=== PATIENT | female | born 1970 | race Caucasian/White ===

== ENCOUNTER → 2016-08-12 | Outpatient (CLI) | payer OTHER ==
[~2016-08-12] MED LIST: CALC0.5C PO; CALC0.5C2 PO; CALC200T3 PO; CALC500T PO; CYCL-259 PO; DIAZ5TAB PO; DILT30TA33 PO; DOCU-30 PO; FAMO20TA7 PO; HYDR-882 PO; LEVO137T2 PO; LEVO150T PO; LIOT5TAB3 PO; OMEP40CA6 PO; OXYC10TA6 PO; OXYC15TA PO; PHEN-494 PO; POLY17PO5 PO; PREG25CA PO
== END | disposition home or self-care (01) ==
LOC: RAD 16:04
PROVIDERS: ATTEND Neurological Surgery
DX: M46.1 Sacroiliitis, not elsewhere classified (principal); M41.86 Other forms of scoliosis, lumbar region; M41.84 Other forms of scoliosis, thoracic region; M41.82 Other forms of scoliosis, cervical region; M51.34 Other intervertebral disc degeneration, thoracic region; Z98.1 Arthrodesis status; Z98.890 Other specified postprocedural states
CPT/HCPCS: 72082; 72128; 72131

== ENCOUNTER → 2016-09-16 | Outpatient (CLI) | payer OTHER ==
[~2016-09-16] MED LIST changes: +ASCO-96 PO; +CHOL40002 PO; +ESTR1PAT25 TD; +LEVO137T3 PO; +MULT-82 PO; +OXYC20TA2 PO; +UBID100C11 PO
== END | disposition home or self-care (01) ==
LOC: STAR 12:45
PROVIDERS: ATTEND Internal Medicine
DX: Z02.9 Encounter for administrative examinations, unspecified (principal)

== ENCOUNTER 2016-09-30 10:40 | Day surgery (SDC) | payer OTHER ==
[~2016-09-30] VITALS: Ht 157.5 cm; Wt 88.2 kg
[2016-09-30] MEDS ORDERED: ONDANSETRON 2MG/ML, 2ML ONE ×2 (11:12→13:11)
[2016-09-30] MEDS ORDERED: KETOROLAC 30 MG/1 ML ONE (11:12)
[2016-09-30] MEDS ORDERED: OXYcodone IR 5MG TABLET ONE (11:24)
[2016-09-30] MEDS ORDERED: OXYcodone 5 MG/5 ML ORAL.SOL UDC ONE ×2 (11:59→15:20)
[2016-09-30] MEDS ORDERED: MIDAZOLAM 1 MG/ML, 2ML ONE (12:49)
[2016-09-30] MEDS ORDERED: FENTANYL PF 250 MCG/5ML ONE (12:49)
[2016-09-30] MEDS ORDERED: CEFAZOLIN 1,000 MG ONE (13:11)
[2016-09-30] MEDS ORDERED: PROPOFOL 10 MG/ML, 20ML ONE (13:11)
[2016-09-30] MEDS ORDERED: DEXAMETHASONE 4 MG/ML, 1ML ONE (13:11)
[2016-09-30] MEDS ORDERED: SUCCINYLCHOLINE 20 MG/ML, 10ML ONE (13:11)
[2016-09-30] MEDS ORDERED: DIAZEPAM 5 MG/ML, 2ML ONE (14:06)
[2016-09-30] MEDS ORDERED: ACETAMINOPHEN 650 MG/20.3 ML UDC ONE (15:20)
[2016-10-02] MEDS ORDERED: LACTATED RINGERS 1,000 ML IV SCH ×2 (10:24→11:00)
[2016-10-02] MEDS ORDERED: FENTANYL PF 100 MCG/2ML IV ONE (11:00)
[2016-10-02] MEDS ORDERED: ONDANSETRON 2MG/ML, 2ML IVPush ONE (11:00)
[2016-10-02] MEDS ORDERED: ACETAMINOPHEN 650 MG/20.3 ML UDC PO ONE (11:00)
[2016-10-02] MEDS ORDERED: OXYcodone 5 MG/5 ML ORAL.SOL UDC PO ONE (11:00)
[2016-10-02] MEDS ORDERED: KETOROLAC 30 MG/1 ML IVPush ONE (11:00)
[2016-10-02] MEDS ORDERED: OXYcodone ORAL.CONC 20 MG/ML PO ONE (11:00)
== END 2016-09-30 16:15 | disposition home or self-care (01) ==
LOC: OR 10:40
PROVIDERS: ATTEND Internal Medicine
DX: J38.01 Paralysis of vocal cords and larynx, unilateral (principal); Z98.1 Arthrodesis status; G89.29 Other chronic pain; E03.9 Hypothyroidism, unspecified; Z88.6 Allergy status to analgesic agent
CPT/HCPCS: 43246; B4087; J0330; J0690; J1100; J1885; J2250; J2405; J2704; J3010; J3360

== ENCOUNTER 2016-10-01 15:26 | Emergency (ER) | payer OTHER ==
[~2016-10-01] VITALS: Ht 157.5 cm; Wt 90.0 kg
[2016-10-01] MEDS ORDERED: SODIUM CHLORIDE 0.9% 1,000 ML IV ONE (15:39)
[2016-10-01] MEDS ORDERED: ONDANSETRON 2MG/ML, 2ML ONE (15:53)
[2016-10-01] MEDS ORDERED: HYDROmorphone 2 MG/ML, 1ML ONE (15:53)
[2016-10-01] MEDS ORDERED: ONDANSETRON 2MG/ML, 2ML IVPush ONE (16:00)
[2016-10-01] MEDS ORDERED: SODIUM CHLORIDE FLUSH 10ML SYR IVF ONE (16:00)
[2016-10-01 16:11] LABS: ASPARTATE AMINO TRANSFERASE 26 U/L (15-37); BLOOD UREA NITROGEN 13 mg/dL (7-18)
[2016-10-01] MEDS: HYDROmorphone 1 MG/ML, 1ML IVPush PRN ×2 (16:59→17:44)
[2016-10-01] MEDS ORDERED: HYDROmorphone 1 MG/ML, 1ML ONE ×2 (17:43→19:34)
[2016-10-01] MEDS ORDERED: OMNIPAQUE 350 MG/ML, 100ML BOTTLE ONE (18:36)
[2016-10-01 19:43] VITALS: BP 127/79
[2016-10-01] MEDS ORDERED: HYDROmorphone 2 MG/ML, 1ML IVPush PRN (20:30)
[2016-10-01] MEDS ORDERED: HYDROmorphone 1 MG/ML, 1ML IVPush PRN (21:23)
== END 2016-10-01 20:11 | disposition home or self-care (01) ==
LOC: ED 20:06
DX: T85.848A Pain due to other internal prosthetic devices, implants and grafts, initial encounter (principal); J45.909 Unspecified asthma, uncomplicated; M54.2 Cervicalgia; E03.9 Hypothyroidism, unspecified; G89.29 Other chronic pain; Z90.49 Acquired absence of other specified parts of digestive tract
CPT/HCPCS: 36415; 74177; 80053; 83690; 85025; 96361; 96374; 96375; 96376; 99285; J1170; J2405; J7030; Q9967

== ENCOUNTER → 2017-01-03 | Outpatient (CLI) | payer OTHER ==
[~2017-01-03] MED LIST changes: +DOCU-131 PO; -DOCU-30 PO; +MULT-224 PO; -MULT-82 PO; -PHEN-494 PO; +PHEN-583 PO; -UBID100C11 PO; +UBID100C41 PO
== END | disposition home or self-care (01) ==
LOC: RAD 12:11
PROVIDERS: ATTEND Neurological Surgery
DX: M48.02 Spinal stenosis, cervical region (principal); M50.01 Cervical disc disorder with myelopathy, high cervical region; M54.6 Pain in thoracic spine; G89.29 Other chronic pain; Z98.1 Arthrodesis status
CPT/HCPCS: 72050; 72072

== ENCOUNTER → 2017-03-12 | Outpatient (CLI) | payer OTHER | END | disposition home or self-care (01) | LOC: CFH 15:57 | PROVIDERS: ATTEND Internal Medicine | DX: R10.11 Right upper quadrant pain (principal); Z90.49 Acquired absence of other specified parts of digestive tract | CPT/HCPCS: 74181 ==

== ENCOUNTER → 2017-05-08 | Outpatient (CLI) | payer OTHER ==
[~2017-05-08] MED LIST changes: -CALC0.5C PO; +CALC0.5C9 PO
== END ==
LOC: LAB 13:08
PROVIDERS: ATTEND Psychiatry & Neurology Neurology
DX: R53.1 Weakness (principal)
CPT/HCPCS: 83519

== ENCOUNTER → 2017-05-08 | Outpatient (CLI) | payer OTHER | LOC: STAR 13:04 | PROVIDERS: ATTEND Otolaryngology | DX: Z02.9 Encounter for administrative examinations, unspecified (principal) ==

== ENCOUNTER → 2017-05-08 | Outpatient (CLI) | payer OTHER | END | disposition home or self-care (01) | LOC: RAD 13:07 | PROVIDERS: ATTEND Neurological Surgery | DX: M47.812 Spondylosis without myelopathy or radiculopathy, cervical region (principal); M41.86 Other forms of scoliosis, lumbar region | CPT/HCPCS: 72050; 72110 ==

== ENCOUNTER 2017-05-13 05:33 | Day surgery (SDC) | payer OTHER ==
[~2017-05-13] VITALS: Ht 157.5 cm; Wt 86.4 kg
[2017-05-13 06:10] VITALS: BP 117/90
[2017-05-13] MEDS ORDERED: LACTATED RINGERS 1,000 ML IV SCH (06:10)
[2017-05-13] MEDS ORDERED: PROPOFOL 10 MG/ML, 20ML ONE (06:23)
[2017-05-13] MEDS ORDERED: ROCURONIUM 10 MG/ML,10ML ONE (06:23)
[2017-05-13] MEDS ORDERED: SUCCINYLCHOLINE 20 MG/ML, 10ML ONE (06:23)
[2017-05-13] MEDS ORDERED: MIDAZOLAM 1 MG/ML, 2ML ONE ×2 (06:23→07:20)
[2017-05-13] MEDS ORDERED: LIDOCAINE-MPF 2% ,5ML ONE (06:23)
[2017-05-13] MEDS ORDERED: FENTANYL PF 100 MCG/2ML ONE ×2 (06:23→07:39)
[2017-05-13] MEDS ORDERED: EPINEPHRINE TOPICAL SOLN 1 MG/ML, 30ML ONE (06:25)
[2017-05-13] MEDS ORDERED: KETAMINE 10 MG/ML, 20ML ONE (06:47)
[2017-05-13] MEDS ORDERED: DEXAMETHASONE 4 MG/ML, 1ML ONE (06:54)
[2017-05-13] MEDS ORDERED: CEFAZOLIN 1,000 MG ONE (06:54)
[2017-05-13] MEDS ORDERED: ONDANSETRON 2MG/ML, 2ML ONE ×2 (06:54→08:31)
[2017-05-13] MEDS ORDERED: OXYcodone 5 MG/5 ML ORAL.SOL UDC PO PRN (07:00)
[2017-05-13] MEDS ORDERED: PROMETHAZINE 25 MG/ML, 1ML IV PRN (07:00)
[2017-05-13] MEDS ORDERED: KETOROLAC 30 MG/1 ML IV PRN (07:00)
[2017-05-13] MEDS ORDERED: HYDROmorphone 1 MG/ML, 1ML IV PRN (07:00)
[2017-05-13] MEDS ORDERED: ACETAMINOPHEN 325 MG TABLET PO PRN (07:00)
[2017-05-13] MEDS ORDERED: MIDAZOLAM 1 MG/ML, 2ML IV PRN (07:00)
[2017-05-13] MEDS ORDERED: MEPERIDINE/PF 25MG/0.5ML IVPush PRN (07:00)
[2017-05-13] MEDS: FENTANYL PF 100 MCG/2ML IV PRN ×2 (07:41→07:54)
[2017-05-13] MEDS ORDERED: OXYcodone/APAP 10/325MG TABLET ONE (08:56)
[2017-05-13] MEDS ORDERED: OXYcodone/APAP 10/325MG TABLET PO PRN (09:00)
[2017-05-13] MEDS ORDERED: ONDANSETRON 2MG/ML, 2ML IVPush PRN (09:00)
== END 2017-05-13 12:45 | disposition home or self-care (01) ==
LOC: OUT 05:33
PROVIDERS: ATTEND Otolaryngology
DX: J38.01 Paralysis of vocal cords and larynx, unilateral (principal); J38.7 Other diseases of larynx; K21.9 Gastro-esophageal reflux disease without esophagitis; E03.9 Hypothyroidism, unspecified; F41.9 Anxiety disorder, unspecified; Z88.6 Allergy status to analgesic agent; Z88.8 Allergy status to other drugs, medicaments and biological substances
CPT/HCPCS: 31570; C1878; J0330; J0690; J1100; J2250; J2405; J2704; J3010; J3490; J7120

== ENCOUNTER → 2017-06-03 | Outpatient (CLI) | payer OTHER ==
[~2017-06-03] MED LIST changes: +GADOBUTROL 10 MMOL/10 ML PFS ONE
== END | disposition home or self-care (01) ==
LOC: RAD 09:07
PROVIDERS: ATTEND Psychiatry & Neurology Neurology
DX: M51.36 Other intervertebral disc degeneration, lumbar region (principal); M54.12 Radiculopathy, cervical region; G89.29 Other chronic pain; R27.0 Ataxia, unspecified; Z98.890 Other specified postprocedural states
CPT/HCPCS: 70553; 72141; 72148; A9585

== ENCOUNTER → 2017-09-23 | Outpatient (CLI) | payer OTHER ==
[~2017-09-23] MED LIST changes: -GADOBUTROL 10 MMOL/10 ML PFS ONE
== END | disposition home or self-care (01) ==
LOC: RAD 12:53
PROVIDERS: ATTEND Neurological Surgery
DX: M41.85 Other forms of scoliosis, thoracolumbar region (principal)
CPT/HCPCS: 72082

== ENCOUNTER 2018-05-26 08:38 | Outpatient (CLI) | payer OTHER ==
[~2018-05-26 08:38] MED LIST changes: +HYDR-3653 PO; -HYDR-882 PO; -MULT-224 PO; +MULT-642 PO
[2018-05-26] MEDS ORDERED: OMNIPAQUE 350 MG/ML, 100ML BOTTLE ONE (13:06)
== END 2018-05-26 23:59 | disposition home or self-care (01) ==
LOC: CFH 08:38
PROVIDERS: ATTEND Nurse Practitioner
DX: R10.11 Right upper quadrant pain (principal); Z90.49 Acquired absence of other specified parts of digestive tract
CPT/HCPCS: 74177; Q9967

== ENCOUNTER → 2018-10-06 | Outpatient (CLI) | payer OTHER ==
[~2018-10-06] MED LIST changes: +DOCU-180 PO; +ERGO500017 PO; +ESTR1PAT4 TD
[2018-10-06 14:07] LABS: MICROSCOPIC NOT IND
[2018-10-06 14:13] LABS: CULTURE INDICATED? NO
[2018-10-06 14:14] LABS: BASOPHILS # (AUTO) 0.09 x10^3/uL (0-0.1); BASOPHILS % (AUTO) 1 % (0-1); EOSINOPHILS # (AUTO) 0.43 x10^3/uL (0-0.4); EOSINOPHILS % (AUTO) 4 % (1-7); LYMPHOCYTES # (AUTO) 2.79 x10^3/uL (1-3.4); LYMPHOCYTES % (AUTO) 27 % (22-44); MD NO; MEAN CORPUSCULAR HEMOGLOBIN 28.2 pg (27.0-34.8); MEAN CORPUSCULAR HGB CONC 32.4 g/dL (32.4-35.8); MEAN PLATELET VOLUME 10.2 fL (7.4-10.4); MONOCYTES # (AUTO) 0.84 x10^3/uL (0.2-0.8); MONOCYTES % (AUTO) 8 % (2-9); NEUTROPHILS # (AUTO) 6.35 x10^3/uL (1.8-6.8); NEUTROPHILS % (AUTO) 60 % (42-75); PLATELET COUNT 269 x10^3/uL (130-400); RED BLOOD COUNT 4.91 x10^6/uL (3.82-5.3); RED CELL DISTRIBUTION WIDTH 13.7 % (9.6-15.2)
[2018-10-06 14:19] LABS: INTERNATIONAL NORMALIZED RATIO 0.95 (0.93-1.1)
[2018-10-06 14:21] LABS: ANION GAP 7 mmol/L (5-15); CALCIUM 8.5 mg/dL (8.5-10.1); CHLORIDE 105 mmol/L (98-107); CREATININE 0.64 mg/dL (0.55-1.02)
== END | disposition home or self-care (01) ==
LOC: STAR 12:34
PROVIDERS: ATTEND Neurological Surgery
DX: Z01.818 Encounter for other preprocedural examination (principal); M47.892 Other spondylosis, cervical region; R94.31 Abnormal electrocardiogram [ECG] [EKG]
CPT/HCPCS: 36415; 71046; 80048; 81003; 85025; 85610; 85730; 93005

== ENCOUNTER 2018-10-21 05:39 | Inpatient (IN) | payer OTHER ==
[~2018-10-21] VITALS: Ht 157.5 cm; Wt 108.7 kg
[2018-10-21] MEDS ORDERED: LACTATED RINGERS 1,000 ML IV SCH (06:15)
[2018-10-21 06:20] VITALS: BP 132/90
[2018-10-21] MEDS ORDERED: FENTANYL PF 250 MCG/5ML ONE (06:51)
[2018-10-21] MEDS ORDERED: MIDAZOLAM 1 MG/ML, 2ML ONE (06:51)
[2018-10-21] MEDS ORDERED: PROPOFOL 50 ML ONE ×3 (06:52→09:18)
[2018-10-21] MEDS ORDERED: LIDOCAINE-MPF 2% ,5ML ONE (06:56)
[2018-10-21] MEDS ORDERED: BUPIVACAINE/EPI 0.5% 1:200K ONE (07:05)
[2018-10-21] MEDS ORDERED: THROMBIN 5,000 UNIT VIAL TP ONE (07:06)
[2018-10-21] MEDS ORDERED: BACITRACIN 50,000 UNIT ONE (07:06)
[2018-10-21] MEDS ORDERED: GABAPENTIN 300 MG CAPSULE PO ONE (07:30)
[2018-10-21] MEDS ORDERED: hydrALAzine 20 MG/ML, 1ML IV PRN (07:30)
[2018-10-21] MEDS ORDERED: MEPERIDINE/PF 25MG/0.5ML IVPush PRN (07:30)
[2018-10-21] MEDS ORDERED: ALBUTEROL SULFATE 2.5 MG/3 ML NPPB PRN (07:30)
[2018-10-21] MEDS ORDERED: SCOPOLAMINE PATCH, 1.5MG PATCH.TD72 TD ONE (07:30)
[2018-10-21] MEDS ORDERED: OXYcodone 5 MG/5 ML ORAL.SOL UDC PO PRN (07:30)
[2018-10-21] MEDS ORDERED: ONDANSETRON 2MG/ML, 2ML IV PRN ×2 (07:30→13:00)
[2018-10-21] MEDS ORDERED: LORazepam 2 MG/ML, 1ML IVPush PRN (07:30)
[2018-10-21] MEDS ORDERED: METOCLOPRAMIDE 5 MG/ML, 2ML IV PRN (07:30)
[2018-10-21] MEDS ORDERED: FENTANYL PF 100 MCG/2ML IV PRN (07:30)
[2018-10-21] MEDS ORDERED: ACETAMINOPHEN 500 MG TABLET PO ONE (07:30)
[2018-10-21] MEDS ORDERED: KETAMINE 10 MG/ML, 20ML ONE (07:40)
[2018-10-21] MEDS ORDERED: DEXAMETHASONE 4 MG/ML, 1ML ONE (07:55)
[2018-10-21] MEDS ORDERED: ONDANSETRON 2MG/ML, 2ML ONE ×2 (09:02→10:34)
[2018-10-21] MEDS ORDERED: ROCURONIUM 10MG/ML,5ML ONE (09:02)
[2018-10-21] MEDS ORDERED: SUCCINYLCHOLINE 20 MG/ML, 10ML ONE (09:02)
[2018-10-21] MEDS ORDERED: CEFAZOLIN 1,000 MG ONE ×2 (09:03)
[2018-10-21] MEDS ORDERED: VANCOMYCIN 1,000 MG ONE (09:33)
[2018-10-21] MEDS ORDERED: MEPERIDINE/PF 100 MG/ML ONE (09:46)
[2018-10-21] MEDS ORDERED: FENTANYL PF 100 MCG/2ML ONE (10:34)
[2018-10-21] MEDS ORDERED: HYDROmorphone 2 MG/ML, 1ML ONE ×2 (10:34→10:46)
[2018-10-21] MEDS ORDERED: OXYcodone 5 MG/5 ML ORAL.SOL UDC ONE (10:35)
[2018-10-21] MEDS: HYDROmorphone 2 MG/ML, 1ML IVPush PRN ×4 (10:46→11:40)
[2018-10-21] MEDS ORDERED: METHOCARBAMOL 1,000 MG in DEXTROSE 5% 100 ML IV ONE (11:00)
[2018-10-21] MEDS ORDERED: hydrALAzine 20 MG/ML, 1ML ONE (11:08)
[2018-10-21 12:15] VITALS: BP 108/71
[2018-10-21] MEDS ORDERED: HYDROcodone/APAP 10/325 MG TABLET PO PRN (13:00)
[2018-10-21] MEDS ORDERED: DIPHENHYDRAMINE 25 MG CAPSULE PO PRN (13:00)
[2018-10-21] MEDS ORDERED: TIZANIDINE 2MG TABLET PO PRN (13:00)
[2018-10-21] MEDS ORDERED: MEPERIDINE/PF 25MG/0.5ML IM PRN (13:00)
[2018-10-21] MEDS ORDERED: MAGNESIUM HYDROXIDE 8%, 30ML UDC PO PRN (13:00)
[2018-10-21] MEDS ORDERED: DIPHENHYDRAMINE 50 MG/ML, 1ML IVPush PRN (13:00)
[2018-10-21] MEDS ORDERED: BISACODYL 10 MG SUPP PR PRN (13:00)
[2018-10-21] MEDS ORDERED: POLYETHYLENE GLYCOL 17 GM PACKET PO PRN (13:30)
[2018-10-21] MEDS: HYDROmorphone PCA 30 MG/30 ML IV PRN (13:37)
[2018-10-21] MEDS: NS + 20MEQ KCL 1,000 ML IV SCH ×2 (13:38→23:00)
[2018-10-21] MEDS: CEFAZOLIN PMX 1GM/50ML 50 ML IVPB SCH (16:29)
[2018-10-21 18:50] VITALS: BP 98/65
[2018-10-21] MEDS: DIAZEPAM 5 MG TABLET PO SCH (22:15)
[2018-10-21 23:55] VITALS: BP 104/66
[2018-10-22] MEDS: DIAZEPAM 5 MG TABLET PO SCH ×3 (00:03→21:43)
[2018-10-22] MEDS: CEFAZOLIN PMX 1GM/50ML 50 ML IVPB SCH (00:08)
[2018-10-22 01:42] VITALS: BP 110/67
[2018-10-22] MEDS: NS + 20MEQ KCL 1,000 ML IV SCH ×2 (01:48→19:22)
[2018-10-22] MEDS: OXYcodone IR 5MG TABLET PO PRN ×6 (01:48→20:35)
[2018-10-22 04:30] VITALS: BP 124/74
[2018-10-22 05:05] LABS: BASOPHILS # (AUTO) 0.08 x10^3/uL (0-0.1); BASOPHILS % (AUTO) 1 % (0-1); EOSINOPHILS # (AUTO) 0.01 x10^3/uL (0-0.4); EOSINOPHILS % (AUTO) 0 % (1-7); LYMPHOCYTES # (AUTO) 1.59 x10^3/uL (1-3.4); LYMPHOCYTES % (AUTO) 9 % (22-44); MD NO; MEAN CORPUSCULAR HGB CONC 31.8 g/dL (32.4-35.8); MEAN PLATELET VOLUME 9.5 fL (7.4-10.4); MONOCYTES # (AUTO) 0.96 x10^3/uL (0.2-0.8); MONOCYTES % (AUTO) 6 % (2-9); NEUTROPHILS % (AUTO) 85 % (42-75); PLATELET COUNT 251 x10^3/uL (130-400); RED BLOOD COUNT 4.23 x10^6/uL (3.82-5.3)
[2018-10-22 05:11] LABS: ANION GAP 4 mmol/L (5-15); CALCIUM 7.9 mg/dL (8.5-10.1); CHLORIDE 105 mmol/L (98-107); CREATININE 0.72 mg/dL (0.55-1.02)
[2018-10-22] MEDS: LEVOTHYROXINE 137 MCG TABLET PO SCH (05:14)
[2018-10-22 07:15] VITALS: BP 99/64
[2018-10-22] MEDS: SENNA/DOCUSATE TABLET PO SCH (09:21)
[2018-10-22] MEDS: DOCUSATE 100 MG CAPSULE PO SCH (09:22)
[2018-10-22] MEDS: VIVELLE DOT TP SCH (09:22)
[2018-10-22] MEDS: METHOCARBAMOL 750 MG TABLET PO SCH ×3 (10:18→21:43)
[2018-10-22 14:36] VITALS: BP 96/67
[2018-10-22] MEDS: HYDROmorphone PCA 30 MG/30 ML IV PRN (18:51)
[2018-10-22 20:18] VITALS: BP 131/82
[2018-10-23] MEDS: OXYcodone IR 5MG TABLET PO PRN ×3 (00:24→21:11)
[2018-10-23 03:32] VITALS: BP 117/79
[2018-10-23] MEDS: NS + 20MEQ KCL 1,000 ML IV SCH ×2 (05:18→15:00)
[2018-10-23 05:55] LABS: BASOPHILS # (AUTO) 0.08 x10^3/uL (0-0.1); BASOPHILS % (AUTO) 1 % (0-1); EOSINOPHILS # (AUTO) 0.57 x10^3/uL (0-0.4); EOSINOPHILS % (AUTO) 4 % (1-7); LYMPHOCYTES # (AUTO) 3.46 x10^3/uL (1-3.4); LYMPHOCYTES % (AUTO) 26 % (22-44); MD NO; MEAN CORPUSCULAR HEMOGLOBIN 28.3 pg (27.0-34.8); MEAN CORPUSCULAR HGB CONC 32.2 g/dL (32.4-35.8); MEAN PLATELET VOLUME 9.2 fL (7.4-10.4); MONOCYTES # (AUTO) 1.22 x10^3/uL (0.2-0.8); MONOCYTES % (AUTO) 9 % (2-9); NEUTROPHILS # (AUTO) 8.22 x10^3/uL (1.8-6.8); NEUTROPHILS % (AUTO) 61 % (42-75); PLATELET COUNT 220 x10^3/uL (130-400); RED BLOOD COUNT 3.95 x10^6/uL (3.82-5.3); RED CELL DISTRIBUTION WIDTH 14.2 % (9.6-15.2)
[2018-10-23 05:58] LABS: ANION GAP 4 mmol/L (5-15); CALCIUM 7.8 mg/dL (8.5-10.1); CHLORIDE 106 mmol/L (98-107); CREATININE 0.73 mg/dL (0.55-1.02)
[2018-10-23] MEDS: METHOCARBAMOL 750 MG TABLET PO SCH ×4 (07:16→20:14)
[2018-10-23] MEDS: LEVOTHYROXINE 137 MCG TABLET PO SCH (07:17)
[2018-10-23] MEDS ORDERED: OxyconTIN ER 20 MG TAB.ER PO SCH (08:30)
[2018-10-23] MEDS: DOCUSATE 100 MG CAPSULE PO SCH (09:00)
[2018-10-23 09:08] VITALS: BP 117/70
[2018-10-23] MEDS: SENNA/DOCUSATE TABLET PO SCH (10:05)
[2018-10-23] MEDS: HYDROmorphone 2MG TABLET PO PRN ×3 (10:06→17:52)
[2018-10-23] MEDS: DIAZEPAM 5 MG TABLET PO SCH ×3 (10:06→21:11)
[2018-10-23] MEDS ORDERED: MEPERIDINE/PF 100 MG/ML ONE (11:32)
[2018-10-23] MEDS ORDERED: MEPERIDINE/PF 50 MG/ML IM PRN (13:00)
[2018-10-23 13:29] VITALS: BP 107/71
[2018-10-23] MEDS: OxyconTIN ER 20 MG TAB.ER PO SCH (14:27)
[2018-10-23] MEDS: HYDROmorphone 2 MG/ML, 1ML IVPush PRN ×4 (16:37→23:36)
[2018-10-23 20:39] VITALS: BP 137/95
[2018-10-24] MEDS: NS + 20MEQ KCL 1,000 ML IV SCH ×3 (01:00→21:00)
[2018-10-24] MEDS: OXYcodone IR 5MG TABLET PO PRN ×2 (01:25→06:43)
[2018-10-24 01:39] VITALS: BP 133/83
[2018-10-24] MEDS: OxyconTIN ER 20 MG TAB.ER PO SCH (02:30)
[2018-10-24 04:54] LABS: BASOPHILS # (AUTO) 0.14 x10^3/uL (0-0.1); BASOPHILS % (AUTO) 1 % (0-1); EOSINOPHILS # (AUTO) 0.63 x10^3/uL (0-0.4); EOSINOPHILS % (AUTO) 5 % (1-7); LYMPHOCYTES # (AUTO) 3.02 x10^3/uL (1-3.4); LYMPHOCYTES % (AUTO) 22 % (22-44); MD NO; MEAN CORPUSCULAR HEMOGLOBIN 29.1 pg (27.0-34.8); MEAN CORPUSCULAR HGB CONC 32.9 g/dL (32.4-35.8); MEAN CORPUSCULAR VOLUME 88.5 fL (80-100); MEAN PLATELET VOLUME 9.5 fL (7.4-10.4); MONOCYTES # (AUTO) 1.06 x10^3/uL (0.2-0.8); MONOCYTES % (AUTO) 8 % (2-9); NEUTROPHILS % (AUTO) 65 % (42-75); PLATELET COUNT 248 x10^3/uL (130-400); RED BLOOD COUNT 4.11 x10^6/uL (3.82-5.3); RED CELL DISTRIBUTION WIDTH 14.1 % (9.6-15.2)
[2018-10-24] MEDS: HYDROmorphone 2 MG/ML, 1ML IVPush PRN ×4 (05:15→19:57)
[2018-10-24] MEDS: LEVOTHYROXINE 137 MCG TABLET PO SCH (05:23)
[2018-10-24] MEDS: METHOCARBAMOL 750 MG TABLET PO SCH ×4 (05:24→21:10)
[2018-10-24] MEDS: DOCUSATE 100 MG CAPSULE PO SCH (07:38)
[2018-10-24 07:51] VITALS: BP 125/81
[2018-10-24] MEDS: SENNA/DOCUSATE TABLET PO SCH (08:46)
[2018-10-24] MEDS: DIAZEPAM 5 MG TABLET PO SCH ×3 (08:58→21:10)
[2018-10-24] MEDS: VIVELLE DOT TP SCH (09:00)
[2018-10-24] MEDS ORDERED: MAGNESIUM HYDROXIDE 8%, 30ML UDC PO ONE (09:00)
[2018-10-24] MEDS: OXYcodone IR 5MG TABLET PO SCH ×4 (10:38→22:10)
[2018-10-24 12:12] VITALS: BP 120/79
[2018-10-24] MEDS ORDERED: PINK LADY ENEMA 490 ML BOTTLE PR ONE (14:00)
[2018-10-24 18:42] VITALS: BP 125/85
[2018-10-25] MEDS: HYDROmorphone 2 MG/ML, 1ML IVPush PRN ×3 (00:18→08:36)
[2018-10-25 00:22] VITALS: BP 119/79
[2018-10-25] MEDS: OXYcodone IR 5MG TABLET PO SCH ×4 (03:21→15:30)
[2018-10-25 05:05] LABS: BASOPHILS # (AUTO) 0.09 x10^3/uL (0-0.1); BASOPHILS % (AUTO) 1 % (0-1); EOSINOPHILS # (AUTO) 0.66 x10^3/uL (0-0.4); EOSINOPHILS % (AUTO) 5 % (1-7); LYMPHOCYTES # (AUTO) 3.31 x10^3/uL (1-3.4); LYMPHOCYTES % (AUTO) 25 % (22-44); MD NO; MEAN CORPUSCULAR HEMOGLOBIN 28.1 pg (27.0-34.8); MEAN CORPUSCULAR HGB CONC 32.2 g/dL (32.4-35.8); MEAN CORPUSCULAR VOLUME 87.2 fL (80-100); MEAN PLATELET VOLUME 9.4 fL (7.4-10.4); MONOCYTES # (AUTO) 1.03 x10^3/uL (0.2-0.8); MONOCYTES % (AUTO) 8 % (2-9); NEUTROPHILS # (AUTO) 7.95 x10^3/uL (1.8-6.8); NEUTROPHILS % (AUTO) 61 % (42-75); PLATELET COUNT 256 x10^3/uL (130-400); RED BLOOD COUNT 4.09 x10^6/uL (3.82-5.3); RED CELL DISTRIBUTION WIDTH 13.5 % (9.6-15.2)
[2018-10-25] MEDS: METHOCARBAMOL 750 MG TABLET PO SCH (06:48)
[2018-10-25] MEDS: LEVOTHYROXINE 137 MCG TABLET PO SCH (06:48)
[2018-10-25] MEDS: NS + 20MEQ KCL 1,000 ML IV SCH (07:00)
[2018-10-25 07:04] VITALS: BP 110/77
[2018-10-25] MEDS: DOCUSATE 100 MG CAPSULE PO SCH (07:30)
[2018-10-25] MEDS: SENNA/DOCUSATE TABLET PO SCH (07:35)
[2018-10-25] MEDS: DIAZEPAM 5 MG TABLET PO SCH ×2 (07:35→14:55)
[2018-10-25] MEDS ORDERED: CYCL-259 PO (08:43)
[2018-10-25] MEDS ORDERED: OXYC15TA PO (08:43)
[2018-10-25] MEDS ORDERED: DIAZ5TAB PO (08:43)
[2018-10-25] MEDS ORDERED: METHOCARBAMOL 750 MG TABLET PO PRN (09:00)
[2018-10-25] MEDS: CYCLOBENZAPRINE 10 MG TABLET PO SCH ×2 (09:50→15:57)
[2018-10-25 12:21] VITALS: BP 109/77
[2018-10-27] MEDS ORDERED: ERGOCALCIFEROL 50,000 UNIT CAPSULE PO SCH (13:30)
== END 2018-10-25 16:00 | disposition home or self-care (01) | DRG 516 ==
LOC: ORIP 05:39 → 4NOR 12:09
PROVIDERS: ADMIT Neurological Surgery; ATTEND Neurological Surgery
PROC: 0RP404Z Removal of Internal Fixation Device from Cervicothoracic Vertebral Joint, Open Approach (ICD-10-PCS; principal; 2018-10-21 07:30)
DX: M96.1 Postlaminectomy syndrome, not elsewhere classified (principal); Z68.41 Body mass index [BMI] 40.0-44.9, adult; M47.892 Other spondylosis, cervical region; E03.9 Hypothyroidism, unspecified; E66.01 Morbid (severe) obesity due to excess calories; Z90.710 Acquired absence of both cervix and uterus; Z90.49 Acquired absence of other specified parts of digestive tract; Z88.6 Allergy status to analgesic agent; Z88.8 Allergy status to other drugs, medicaments and biological substances; Z82.49 Family history of ischemic heart disease and other diseases of the circulatory system; Z82.3 Family history of stroke; Z87.891 Personal history of nicotine dependence
CPT/HCPCS: 36415; J3490; 80048; 85025; 95938; 95941; C1713; G0378; J0690; J1100; J1170; J2175; J2250; J2405; J2704; J3010; J3370; J3480; J0330; J0360; J2800; J7120